=== PATIENT | female | born 1990 | race Caucasian/White ===

== ENCOUNTER → 2017-03-09 | Outpatient (CLI) | payer BC, OTHER ==
[~2017-03-09] MED LIST: PRENTAB26 PO
== END | disposition home or self-care (01) ==
LOC: C.PAPS 15:37
PROVIDERS: ATTEND Obstetrics & Gynecology
DX: Z12.4 Encounter for screening for malignant neoplasm of cervix (principal); R87.613 High grade squamous intraepithelial lesion on cytologic smear of cervix (HGSIL)

== ENCOUNTER → 2017-03-30 | Outpatient (CLI) | payer OTHER | END | disposition home or self-care (01) | LOC: C.PATHSPEC 18:11 | PROVIDERS: ATTEND Obstetrics & Gynecology | DX: D06.9 Carcinoma in situ of cervix, unspecified (principal) ==

== ENCOUNTER → 2017-04-25 | Outpatient (CLI) | payer OTHER | END | disposition home or self-care (01) | LOC: C.PATHSPEC 13:16 | PROVIDERS: ATTEND Obstetrics & Gynecology | DX: R87.613 High grade squamous intraepithelial lesion on cytologic smear of cervix (HGSIL) (principal) ==

== ENCOUNTER → 2017-07-06 | Outpatient (CLI) | payer OTHER | END | disposition home or self-care (01) | LOC: C.LABSPEC 13:21 | PROVIDERS: ATTEND Obstetrics & Gynecology | DX: Z34.81 Encounter for supervision of other normal pregnancy, first trimester (principal) ==

== ENCOUNTER → 2017-07-11 | Outpatient (CLI) | payer OTHER ==
[2017-07-11 10:13] LABS: BASO % 0.2 %; BASO ABS # 0.01 K/uL (0-0.2); EOS % 1.4 %; EOS ABS # 0.09 K/uL (0-0.5); HEMATOCRIT 37.6 % (37-47); HEMOGLOBIN 13.4 g/dL (12.0-16.0); IG# 0.01 K/uL (0.00-0.02); LYMPH % 23.8 %; LYMPH ABS # 1.52 K/uL (1.2-3.4); MEAN CELL VOLUME 83.2 fL (80-100); MEAN CORPUSCULAR HEMOGLOBIN 29.6 pg (25-34); MEAN CORPUSCULAR HGB CONC 35.6 g/dl (32-36); MONO % 4.7 %; NEUT % 69.7 %; NEUT ABS # 4.47 K/uL (1.4-6.5); PLATELET COUNT 186 K/uL (130-400); RED CELL DISTRIBUTION WIDTH CV 12.1 % (11.5-14.5); RED CELL DISTRIBUTION WIDTH SD 36.8 fL (36.4-46.3)
== END | disposition home or self-care (01) ==
LOC: C.LAB1850 09:35
PROVIDERS: ATTEND Obstetrics & Gynecology
DX: Z34.81 Encounter for supervision of other normal pregnancy, first trimester (principal)

== ENCOUNTER 2017-10-24 08:46 | Emergency (ER) | payer OTHER ==
[~2017-10-24] VITALS: Ht 160 cm; Wt 84.0 kg
[2017-10-24 08:48] VITALS: TEMP 36.8; Ht 160 cm; Wt 84.0 kg
[2017-10-24] MEDS ORDERED: SODIUM CHLORIDE 0.9% 1000ML 1,000 ML IV ONE (09:15)
[2017-10-24 09:44] LABS: EOS % 1.2 %; HEMATOCRIT 31.2 % (37-47); IG# 0.02 K/uL (0.00-0.02); LYMPH ABS # 1.29 K/uL (1.2-3.4); MEAN CELL VOLUME 86.4 fL (80-100); MEAN CORPUSCULAR HEMOGLOBIN 30.5 pg (25-34); MEAN CORPUSCULAR HGB CONC 35.3 g/dl (32-36); MEAN PLATELET VOLUME 8.9 fL (7.4-10.4); MONO % 4.6 %; MONO ABS # 0.37 K/uL (0.11-0.59); NEUT ABS # 6.29 K/uL (1.4-6.5); PLATELET COUNT 173 K/uL (130-400); RED CELL DISTRIBUTION WIDTH CV 13.8 % (11.5-14.5); RED CELL DISTRIBUTION WIDTH SD 43.3 fL (36.4-46.3); WHITE BLOOD COUNT 8.07 K/uL (4.8-10.8)
[2017-10-24] MEDS ORDERED: PRENTAB26 PO (09:54)
[2017-10-24 09:59] LABS: CALCIUM 8.4 mg/dl (8.5-10.1); CREATININE 0.58 mg/dl (0.60-1.20); POTASSIUM 3.3 mmol/L (3.5-5.1)
--- NOTE | 2017-10-24 10:06 | EMERGENCY ROOM VISIT NOTE ---
ED Visit Note First contact with patient: 08:57 Chief Complaint: I passed out. History of Present Illness: Ms. Arreola is a 27-year-old white female who are complaining of a syncopal episode. Patient is currently at 22 weeks (LMP May 24, EDC February 28). 2 para 1 without previous or delivery complications. 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 She was seen by specialists and no seizure disorder was diagnosed and she has had no additional episodes of syncope or seizures. 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 She reports she was standing for approximately 2 hours. She reports she started developing tunnel vision and started feeling dizzy. She then had a syncopal episode and when she collapsed she struck her head on a metal shelf. It was reported by the staff at the store that patient had a 1-2 minute loss of consciousness. No seizure activity was noted. Currently she is complaining of mild pain in the area where she struck her head over the left parietal area. She describes this as an achy sensation. She rates her discomfort 3/10. Her pain is nonradiating. Her pain slightly worsens with palpation. She has not identified any alleviating factors related to the pain. She has not had any medications for pain prior to arrival at the hospital. She denies any current associated lightheadedness, dizziness, visual changes, hearing changes, difficulty speaking, difficulty swallowing, difficulty ambulating/correlating body movements, neck pain, back pain, chest pain, shortness of breath, abdominal pain, nausea, vomiting, extremity weakness/ numbness/tingling, pelvic cramping, vaginal bleeding. Review of Systems: As noted above in history of present illness. All body systems were reviewed and found to be negative as noted above. Past Medical History: As previously noted and status post tonsillectomy. Current Medications: vitamins. Allergies to Medications: Acetaminophen, oxycodone. Social History: Patient is currently employed; she feels safe in her home environment; she denies tobacco and alcohol use. Physical Examination: Vital Signs: Date Time Temp Pulse Resp B/P (MAP) Pulse Ox O2 Delivery O2 Flow Rate FiO2 10/24/17 12:07 78 111/64 98 Room Air 10/24/17 12:07 78 14 111/64 98 10/24/17 11:11 77 16 107/62 98 Room Air 10/24/17 09:18 108/58 104/59 103/63 10/24/17 08:48 36.8 81 20 88/52 99 Room Air GENERAL: 27-year-old female in mild distress due to pain, nontoxic-appearing, afebrile and hemodynamically stable. NEUROLOGICAL: Awake, alert and oriented to person, place and time. Answering questions appropriately and following commands. Normal gait. Good hand eye coordination. Cranial nerves II through XII grossly intact. SKIN: Warm, dry and pink. No soft tissue eruptions or trauma noted. HEENT: Atraumatic and normocephalic. Skull: No bony deformity, bony crepitus, ecchymosis or swelling. Minimal tenderness in the left parietal area. No raccoons eyes or ariza signs. No drainage from the ears of the nostril; no hemotympanum. Face: No bony deformity, bony crepitus, swelling or ecchymosis. PERRLA. EOMI without nystagmus. Sclera white and conjunctiva pink. No malocclusion. No intraoral trauma. Airway patent. Speech normal. Trachea midline. No jugular venous distention. BACK: No tenderness over the bony cervical, thoracic and lumbar spine. No tenderness throughout the paraspinous musculature. Full range of motion of the cervical spine. No CVA tenderness. THORAX: Lungs sounds are clear to auscultation and equal bilaterally with symmetrical chest wall. HEART: Regular rate and rhythm. No gallops, rubs or murmurs are appreciated. ABDOMEN: , soft and nontender. Positive bowel sounds in all quadrants. No guarding, rigidity or organomegaly. EXTREMITIES: Moves all extremities well on command and with purpose. All distal neurovascular statuses are intact and equal bilaterally. No calf tenderness or cords. 4/5 muscle strength in all movements of the upper and lower extremities. ED Course: Patient is assessed as noted above. Patient's medication list was reviewed. An IV lock was initiated and patient was hydrated with normal saline. EKG: Was read by myself and reviewed with Dr. Power; shows normal sinus rhythm with a ventricular rate of 75 bpm. Normal axis, intervals and complexes. No acute ST changes indicating ischemia, injury or infarction. Patient was reassessed multiple times during her stay in the emergency department. Patient's case was reviewed with Dr. Power; independently assessed the patient we agreed on diagnostic approach, treatment, disposition and plan. Patient and family members were educated about today's findings and instructed on her treatment plan; they verbalized understanding and agreement with this plan. Clinical Impression: Syncope. Probable vasovagal episode. Disposition: Patient discharged home accompanied by multiple family members; prior to departure patient was reassessed and subjectively reported she was pain and symptom-free. Plan: Patient was encouraged to stay well-hydrated with increased clear fluids. Patient was encouraged to avoid standing for long periods of time. 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 Patient was encouraged return to the ED for any additional episodes of syncope or any new/concerning symptoms
--- NOTE | 2017-10-24 11:05 | DIAGNOSTIC IMAGING REPORT ---
LIMITED ULTRASOUND CLINICAL HISTORY: 22 wks, syncope and hypotension COMPARISON STUDY: No previous studies for comparison. TECHNIQUE: Transabdominal sonography of the pelvis was performed. FINDINGS: Single viable intrauterine gestation is noted with normal heart rate of 126 bpm. Presentation is breech. Please note that a dedicated anatomical survey was not performed. Femur length measures 3.8 cm which corresponds to an estimated gestational age of 22 weeks and 1 day. Amniotic fluid index is normal at 12.8 cm. Placenta is located posteriorly. There is no placental abnormality. Cervix is closed, measuring approximately 4 cm in length. IMPRESSION: 1. Single viable intrauterine gestation. 2. Normal heart rate of 126 bpm. 3. Estimated gestational age of 22 weeks and 1 day. 4. Normal amniotic fluid index. 5. No placental abnormality. 6. Breech presentation. Electronically signed by: Mat Valero M.D. 10/24/2017 11:04 AM Dictated Date/Time: 10/24/2017 11:01 AM
[2017-10-24 12:07] VITALS: BP 111/64; PULSE 78; O2SAT 98
== END 2017-10-24 12:10 | disposition home or self-care (01) ==
LOC: C.EDB 08:48 → C.EDA 12:10
DX: O99.89 Other specified diseases and conditions complicating pregnancy, childbirth and the puerperium (principal); Z3A.22 22 weeks gestation of pregnancy; R55 Syncope and collapse